=== PATIENT | male | born 1930 | race Caucasian/White ===

== ENCOUNTER → 2016-09-21 | Outpatient (CLI) | payer OTHER ==
[2016-09-21 10:19] LABS: AUTOMATED NEUTROPHIL # 4.6 TH/MM3 (1.8-7.7); BASOPHIL % 0.4 % (0.0-2.0); EOSINOPHIL # 0.1 TH/MM3 (0-0.4); EOSINOPHIL % 1.3 % (0.0-4.0); HEMATOCRIT 33.4 % (39.0-51.0); HEMO FLAGS DIFF FINAL; LYMPH % 30.8 % (9.0-44.0); LYMPHOCYTE # 2.5 TH/MM3 (1.0-4.8); MEAN CELL VOLUME 75.4 FL (80.0-100.0); MEAN CORPUSCULAR HEMOGLOBIN 25.1 PG (27.0-34.0); MEAN CORPUSCULAR HGB CONC 33.3 % (32.0-36.0); MONO % 10.2 % (0.0-8.0); NEUT % 57.3 % (16.0-70.0); PLATELET COUNT 387 TH/MM3 (150-450); RED BLOOD COUNT 4.43 MIL/MM3 (4.50-5.90)
[2016-09-21 10:21] LABS: APTT (PATIENT) 29.6 SEC (24.3-30.1); PROTHROMBIN TIME - PATIENT 10.5 SEC (9.8-11.6)
== END ==
LOC: CLAB 09:51
PROVIDERS: ATTEND Family Medicine
DX: C45.1 Mesothelioma of peritoneum (principal)
CPT/HCPCS: 36415; 85025; 85610; 85730

== ENCOUNTER 2016-09-27 09:33 | Day surgery (SDC) | payer OTHER ==
[2016-09-27 10:16] VITALS: BP 146/87; PULSE 74; RESP 18; TEMP 98; O2SAT 93
[2016-09-27 11:40] VITALS: BP 152/83; PULSE 70; RESP 18; TEMP 98.2; O2SAT 94
[2016-09-27 11:57] VITALS: BP 128/78; PULSE 68; RESP 18; O2SAT 94
--- NOTE | 2016-09-27 14:22 | RADRPT ---
EXAM DATE/TIME: 09/27/2016 10:11 [facility] COMPARISON: No previous studies available for comparison. INDICATIONS : Ascites. MEDICAL HISTORY : Hypercholesterolemia. Liver disease. SURGICAL HISTORY : Cholecystectomy Pacemaker. Right ankle surgery. ENCOUNTER: Initial ACUITY: 1 day PAIN SCORE: 2/10 LOCATION: Right lower quadrant FLUID: Total volume of 3200 cc of clear, red fluid was removed. Fluid was discarded. Paracentesis was therapeutic only. Post procedure scanning reveals no hematoma or other complication. TECHNIQUE: 1. Ultrasound guidance for abdominal paracentesis. 2. Paracentesis. The risks, benefits, and alternatives to ultrasound guided paracentesis were explained to the patient in detail including the risk of bleeding and infection. Written and verbal informed consent was obt ained. With the patient on the ultrasound table, ultrasound imaging was used to select the most appropriate approach for paracentesis. Overlying skin was prepped and draped in the usual sterile fashion and wi th a local anesthetic, a dermatotomy was made with an 11 blade scalpel. A 6 [place] [id number] ca theter was introduced into the peritoneal cavity and fluid was collected. The patient tolerated the procedure well and left the ultrasound suite in stable condition. CONCLUSION: Uncomplicated ultrasound guided paracentesis with removal of 3.2 L of fluid. Edy Coronado MD on September 27, 2016 at 14:14 Board Certified Radiologist. This report was verified electronically.
== END 2016-09-27 12:10 | disposition home or self-care (01) ==
LOC: HRIP 09:33 → HRAD 09:33
PROVIDERS: ATTEND Family Medicine
DX: R18.8 Other ascites (principal); K76.9 Liver disease, unspecified; E78.00 Pure hypercholesterolemia, unspecified
CPT/HCPCS: 49083; C1729

== ENCOUNTER → 2016-11-06 | Outpatient (CLI) | payer OTHER ==
[2016-11-06 10:27] LABS: HEMATOCRIT 32.2 % (39.0-51.0); MEAN CELL VOLUME 74.2 FL (80.0-100.0); MEAN CORPUSCULAR HEMOGLOBIN 23.8 PG (27.0-34.0); MEAN CORPUSCULAR HGB CONC 32.1 % (32.0-36.0); PLATELET COUNT 412 TH/MM3 (150-450); RED BLOOD COUNT 4.34 MIL/MM3 (4.50-5.90); RED CELL DISTRIBUTION WIDTH 15.5 % (11.6-17.2); WHITE BLOOD COUNT 6.9 TH/MM3 (4.0-11.0)
[2016-11-06 10:28] LABS: REVIEW FLAG FINAL
[2016-11-06 10:32] LABS: APTT (PATIENT) 30.3 SEC (24.3-30.1); PROTHROMBIN TIME - PATIENT 10.7 SEC (9.8-11.6)
== END ==
LOC: CLAB 10:01
PROVIDERS: ATTEND Family Medicine
DX: C45.1 Mesothelioma of peritoneum (principal); K70.30 Alcoholic cirrhosis of liver without ascites
CPT/HCPCS: 36415; 85027; 85610; 85730

== ENCOUNTER 2016-11-09 07:38 | Day surgery (SDC) | payer OTHER ==
[2016-11-09 07:57] VITALS: BP 124/76; PULSE 76; RESP 16; TEMP 97; O2SAT 97
[2016-11-09 09:30] VITALS: BP 142/86; PULSE 69; RESP 18; RESP 20; TEMP 97.5; O2SAT 91
--- NOTE | 2016-11-09 09:38 | RADRPT ---
EXAM DATE/TIME: 11/09/2016 07:54 [facility] COMPARISON: EXTERNAL COMPARISON: US GUIDED ABD PARACENTESIS, September 27, 2016, 10:11. [facility], CT ABDOMEN & PELVIS W PELON Dolan, Aug 28 2016. INDICATIONS : Ascites. MEDICAL HISTORY : Hypercholesterolemia. Liver disease. Liver disease. Diabetes. Mesothelioma. SURGICAL HISTORY : Cholecystectomy Pacemaker. Right ankle surgery. Paracentesis. ENCOUNTER: Subsequent ACUITY: 4 - 6 days PAIN SCORE: 0/10 LOCATION: Right lower quadrant FLUID: Total volume of 4,400 cc of cloudy, red fluid was removed. Fluid was discarded. Paracentesis was therapeutic only. Post procedure scanning reveals no hematoma or other complication. TECHNIQUE: 1. Ultrasound guidance for abdominal paracentesis. 2. Paracentesis. The risks, benefits, and alternatives to ultrasound guided paracentesis were explained to the patient in detail including the risk of bleeding and infection. Written and verbal informed consent was obt ained. With the patient on the ultrasound table, ultrasound imaging was used to select the most appropriate approach for paracentesis. Overlying skin was prepped and draped in the usual sterile fashion and wi th a local anesthetic, a dermatotomy was made with an 11 blade scalpel. A 6 [id number] ca theter was introduced into the peritoneal cavity and fluid was collected. The patient tolerated the procedure well and left the ultrasound suite in stable condition. CONCLUSION: Uncomplicated ultrasound guided paracentesis. Andrey Aviles MD on November 09, 2016 at 9:36 Board Certified Radiologist. This report was verified electronically.
[2016-11-09 09:45] VITALS: BP 141/95; PULSE 68; RESP 20; O2SAT 91
== END 2016-11-09 10:00 | disposition home or self-care (01) ==
LOC: HRAD 07:38 → HRIP 07:43 → HRAD 10:00
PROVIDERS: ATTEND Family Medicine
DX: R18.8 Other ascites (principal); E78.00 Pure hypercholesterolemia, unspecified; E11.9 Type 2 diabetes mellitus without complications; C45.9 Mesothelioma, unspecified
CPT/HCPCS: 49083; C1729